=== PATIENT | male | born 1985 | race Caucasian/White ===

== ENCOUNTER → 2018-03-10 | Outpatient (CLI) | payer BC | LOC: SUN.DIA 08:39 | DX: R73.03 Prediabetes (principal) | CPT/HCPCS: G0108 ==

== ENCOUNTER → 2018-03-25 | Outpatient (CLI) | payer BC | LOC: SUN.DIA 08:46 | DX: R73.03 Prediabetes (principal); Z68.25 Body mass index [BMI] 25.0-25.9, adult; Z71.3 Dietary counseling and surveillance | CPT/HCPCS: G0108 ==